=== PATIENT | male | born 2000 | race African-American/Black ===

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

== ENCOUNTER 2022-09-04 18:03 | Emergency (ER) | payer MEDICAID ==
[~2022-09-04] VITALS: Ht 167.6 cm; Wt 86.8 kg
[~2022-09-04 18:03] MED LIST changes: -CLON-529 PO; +DULO-31 PO; +GABA-530 PO; -GABA-532 PO; +HYDR50CA5 PO; +LURA40TA2 PO; -LURA40TA3 PO; -LURA60TA2 PO; +SERT-434 PO; +TRAZ-251 PO
[2022-09-04 18:52] VITALS: BP 162/111
--- NOTE | 2022-09-04 19:01 | NUR ---
Patient was just triaged, he went out to lobby and told admitting he did not want to wait and left
== END 2022-09-04 19:17 | disposition left against medical advice (07) ==
LOC: ER 18:04
DX: K04.7 Periapical abscess without sinus (principal); Z53.21 Procedure and treatment not carried out due to patient leaving prior to being seen by health care provider
CPT/HCPCS: 99281

== ENCOUNTER 2022-12-14 12:51 | Emergency (ER) | payer MEDICAID | END 2022-12-14 14:42 | disposition left against medical advice (07) | LOC: ER 12:52 | DX: K04.7 Periapical abscess without sinus (principal); Z53.21 Procedure and treatment not carried out due to patient leaving prior to being seen by health care provider ==

== ENCOUNTER 2024-11-14 17:43 | Emergency (ER) | payer MEDICAID ==
[~2024-11-14] VITALS: Ht 170.2 cm; Wt 68.4 kg
[2024-11-14 18:05] VITALS: BP 127/80; PULSE 88; RESP 18; TEMP 98.6; O2SAT 100
--- NOTE | 2024-11-14 18:55 | Physician Documentation ---
History of Present Illness ~ General Chief Complaint: See Chief Complaint Stated Complaint: MED CLEARANCE Time Seen by MD: 18:52 OK to notify your PCP?: Yes Primary Medical Doctor: MADYSON// KARMA Source: patient Mode of Arrival: POV Exam Limitations: no limitations History of Present Illness Initial Comments 23-year-old male presents for a note to return back to work. He had a lesion removed from his left upper thigh and was written off of work for it but it his healed up nicely and he would like to return back to work. He does have [address] which he states is due to be removed on the . There are no signs of infection. Medication Reconciliation Allergies: Coded Allergies: No Known Allergies (Unverified , 04/19/18) Scheduled Duloxetine Hcl* (Cymbalta*), 2 CAP PO BID, (Reported) Gabapentin (Gabapentin), 3 CAP PO QAM, (Reported) Lurasidone HCl (Latuda), 1 TAB PO HS, (Reported) Sertraline HCl (Sertraline HCl), 1 TAB PO QAM, (Reported) Scheduled PRN Hydroxyzine Pamoate (Hydroxyzine Pamoate), 1 CAP PO DAILY PRN for anxiety, (Reported) Trazodone HCl (Trazodone HCl), 1 TAB PO HS PRN for insomnia, (Reported) Past Medical History Past Medical History: No Pertinent History, Anxiety, Bipolar Past Surgical History: noncontributory Patient History: FH: diabetes mellitus Hypertension Alcohol Use: None Drug Use: none Lives with: Family Lives In: Home Review of Systems All Other Systems at this time: Reviewed and Negative Physical Exam Physical Exam Vital Signs: RN Vital Signs have been reviewed: Yes, Temperature: 98.6, Source: Temporal, Heart Rate: 88, Respiratory Rate: 18, BP: 127/80, Pulse Oximetry: 100, Weight: 68.400 Oxygen Flow Rate: 0 Pulse Oximetry Reflects: adequate oxygenation Physical Exam General: Alert, no distress. HEENT: No injection, moist mucous membranes. Neck: Full range of motion. Respiratory: No respiratory distress, equal chest rise and fall. Chest: No accessory muscle use. Cardiovascular: Regular rate and rhythm. Gastrointestinal: Nondistended. Extremities: Normal range of motion, no deformity. Neurologic: Oriented x4. Psychiatric: Normal mood and affect. Skin: Normal color, warm and dry. One suture to right upper anterior thigh. No signs of infection. Progress Results/Orders Reviewed/noted all lab results: Yes Results/Orders Vital Signs 11/14/24 18:05 Temp 98.6 Pulse 88 Resp 18 B/P (MAP) 127/80 Pulse Ox 100 O2 Flow Rate 0 Medical Decision Making Additional info obtained from: old records Findings This patient is requesting a note to return back to work. He was originally written off of work due to have a lesion removed although it is healed up nicely and he would like to return sooner to work. I wrote him on his discharge instructions and note to return back to work. He has plans to have the suture removed on the . There are no signs or symptoms of infection around the site. He is afebrile, vital signs are stable. Departure Disposition: HOME / SELF CARE / HOMELESS Impression: Primary Impression: General medical exam Condition: Stable Discharge Instructions: General Discharge Instructions Additional Instructions: Medically Cleared to return back to work as of 11/14/2024. Referrals: NO PRIMARY CARE PROVIDER (PCP) Education Educated: Patient Educated regarding: diagnosis, treatment, prognosis, need for follow up Additional Comment Medical Screen Exam This patient recieved a medical screening examination. After reviewing the individual's medical complaints with presenting symptoms and performing an appropriate physical examination, it was determined that no immediate life- threatening emergency medical condition is present. This individual is also not a women having contractions. Signature Scribe Signature: . Attestation: Scribed for Raisa Parker by Raisa Gibson NP . 11/14/24 19:02 Parts of this note were created using [employer] voice recognition software program. While efforts were made to correct any mistakes made by this voice recognition software program, nonsensical phrases may remain in this note. In addition, there may be errors and syntax, grammar, content and spelling. RAISA PARKER Nov 14, 2024 18:55
== END 2024-11-14 19:01 | disposition home or self-care (01) ==
LOC: ER 17:44
DX: Z00.8 Encounter for other general examination (principal)
CPT/HCPCS: 99282